=== PATIENT | male | born 1985 | race Caucasian/White ===

== ENCOUNTER 2024-08-01 05:34 | Emergency (ER) | payer OTHER ==
[~2024-08-01] VITALS: Ht 180.3 cm; Wt 81.6 kg
[2024-08-01] MEDS ORDERED: MAG HYDROX/AL HYDROX/SIMETH 30 ML UDC ONE (06:43)
[2024-08-01] MEDS: MAG HYDROX/AL HYDROX/SIMETH 30 ML UDC PO ONE (06:46)
[2024-08-01] MEDS ORDERED: PANT40TA49 PO (08:34)
[2024-08-01 08:40] VITALS: BP 122/77; TEMP 98.1; O2SAT 98
== END 2024-08-01 08:41 | disposition home or self-care (01) ==
LOC: ER 05:42
DX: R13.19 Other dysphagia (principal); R11.2 Nausea with vomiting, unspecified; Z86.59 Personal history of other mental and behavioral disorders
CPT/HCPCS: 71250-TC